=== PATIENT | male | born 1985 | race Caucasian/White ===

== ENCOUNTER 2019-01-09 11:52 | Emergency (ER) | payer OTHER, MEDICAID ==
[2019-01-09] MEDS ORDERED: LET GEL TOPICAL 1 EA SYR TP ONE (12:00)
--- NOTE | 2019-01-09 12:13 | EDPHY ---
General Time Seen by Provider: 01/09/19 11:57 Narrative: CLINICAL IMPRESSION: Right eyebrow laceration ASSESSMENT/PLAN: 33-year-old male presents to the emergency department from [facility] after he was elbowed in the right eyebrow playing basketball sustaining a right eyebrow laceration. Tetanus up-to-date. No evidence of open globe injury, hyphema, orbital rim step-off, significant periorbital inflammation or midface instability to suggest [place] fracture. Wound was anesthetized and repaired as per chart notes below. No subjective vision changes. Wound care discussed, sinus symptoms of infection reviewed, warning signs return to ED sooner discussed discharge. DIFFERENTIAL DIAGNOSIS: includes but not limited to laceration of tendon or vascular structure, underlying fracture, laceration with retained FB ED PROCEDURES: Laceration Repair Verbal consent obtained by patient. Risks discussed, including but not limited to infection, pain, retained foreign body, need for additional repair, poor cosmetic result, tendon damage, nerve damage, poor wound healing, vascular damage. Alternatives to repair discussed. [place] protocol used to establish correct patient, procedure, equipment, it support specialist, and site. Anesthesia obtained by local infiltration. Anesthetized with 0.5% bupivacaine with epinephrine. Laceration location right eyebrow, length 1.5 cm, depth 3 mm, Repair type simple. Patient was prepped and draped in usual sterile fashion. Hemostasis achieved with direct pressure. Wound explored through full range of motion and entire depth of wound probed and visualized with gloved finger. No suspicion for nerve damage, tendon damage, underlying fracture, vascular damage, foreign body, or contamination. Area was cleansed with Shur-Clens and irrigated with sterile saline as per protocol. No foreign body or material removed. Repair method 6 0 Prolene simple interrupted sutures. Seven sutures placed. Well aligned, closely approximated. wound was dressed with antibiotic ointment and Band-Aid. Patient tolerated well with no immediate complications. Wound care: Clean and dry x 24 hours, gently clean with soap and water, cover with topical antibiotic ointment/bandage. Suture/Staple removal: 5 Days CHIEF COMPLAINT: Laceration HPI: 33-year-old inmate at the [facility] presents with police after he was elbowed in the right eyebrow playing basketball and sustained a laceration. Tetanus is up-to-date. No reports of vision changes, diplopia, or eye pain. No headache, nausea, vomiting. No loss of consciousness. No other injuries. PAST MEDICAL HISTORY: Hypertension Social History: Tetanus up-to-date REVIEW OF SYSTEMS: All other systems negative Constitutional: No fever, no chills Musculoskeletal: No deformity, no joint pain, no neck pain Skin: Right eyebrow laceration Neurological: [No sensory loss or weakness, no headache, dizziness, vertigo PHYSICAL EXAM: General Appearance: Alert, oriented, appropriate for age, cooperative, NAD, well hydrated, non-toxic appearing, VSS, no hypoxia. Neurological: Alert and oriented x 3 Skin: 1.5 cm laceration to right lateral eyebrow HEENT/eye: No evidence of open globe injury, hyphema, diplopia, entrapment, or significant periorbital edema or step-off. Musculoskeletal: No midline neck pain, no upper extremity radiculopathy MEDICAL DECISION MAKING: Patient was seen independently. Secondary supervising physician at time of evaluation was Dr. Peñaloza. Diagnosis: Right eyebrow laceration . New, requires workup Summary: See assessment and plan for summary of ED visit Patient Progress stable for discharge. - History Smoking Status: Former smoker - Objective Vital Signs: Initial Vital Signs Temperature (C) 36.9 C 01/09/19 11:57 Heart Rate 64 01/09/19 11:57 Respiratory Rate 18 01/09/19 11:57 Blood Pressure 143/97 H 01/09/19 11:57 O2 Sat (%) 96 01/09/19 11:57 O2 Delivery Mode Room Air Allergies/Adverse Reactions: No Known Allergies Allergy (Unverified 01/09/19 11:56) Home Medications: Medication Instructions Recorded Hydrochlorothiazide 01/09/19 Medications Given: Discontinued Medications Tetracaine/Epinephrine/Lidocaine (Let Gel Topical) 1 ea TP EDNOW ONE Stop: 01/09/19 12:01 Last Admin: 01/09/19 12:11 Dose: 1 ea Departure - Departure Disposition: Home, Routine, Self-Care Clinical Impression: Laceration of eyebrow Qualifiers: Encounter type: initial encounter Laterality: right Qualified Code(s): S01.111A - Laceration without foreign body of right eyelid and periocular area, initial encounter Condition: Good Instructions: Laceration (ED) Additional Instructions: DISCHARGE INSTRUCTIONS FROM YOUR DOCTOR Thank you for visiting our emergency department today. You were treated by a physician certified ophthalmic assistant today and your case was reviewed with our ED Attending physician. Please keep in mind that discharge from the emergency department does not mean that there is nothing wrong - it simply means that we have not identified an emergency condition that requires further evaluation or treatment in the hospital. You should always plan to follow up with primary care for re- evaluation of your condition in the next 2-3 days. If you have been referred to a specialist, please call as soon as possible (today or tomorrow) to schedule your follow up appointment at the appropriate time. PLEASE HAVE SUTURES/ALLA REMOVED IN 5 DAYS. YOU CAN RETURN TO THE EMERGENCY DEPARTMENT OR YOUR PRIMARY CARE FOR SUTURE/STAPLE REMOVAL. AVOID SUBMERGING SUTURES/ALLA UNDERWATER FOR PROLONGED PERIOD OF TIME UNTIL REMOVED. KEEP WOUND CLEAN AND DRY, COVER WITH ANTIBIOTIC OINTMENT AND BAND-AID. RETURN TO EMERGENCY DEPARTMENT FOR REDNESS, SWELLING, DISCHARGE, WARMTH TO THE SKIN, OR ANY OTHER CONCERNS FOR INFECTION. People present with illnesses and injuries in different ways, and it is always possible that we have missed something. You may always return for re-evaluation if symptoms worsen or if they are not improving or if you develop new/different symptoms. Again, thank you for choosing our emergency department. We hope that you feel better. Referrals: NONE *PRIMARY CARE P,. [Primary Care Provider] - As per Instructions
[2019-01-09 13:37] VITALS: BP 132/91
== END 2019-01-09 13:37 | disposition home or self-care (01) ==
PROC: 08QNXZZ Repair Right Upper Eyelid, External Approach (ICD-10-PCS; principal; 2019-01-09)
DX: S01.111A Laceration without foreign body of right eyelid and periocular area, initial encounter (principal); W51.XXXA Accidental striking against or bumped into by another person, initial encounter; Y92.149 Unspecified place in prison as the place of occurrence of the external cause; Y93.67 Activity, basketball